=== PATIENT | female | born 1935 | race Caucasian/White ===

== ENCOUNTER 2016-08-23 12:29 | Day surgery (SDC) | payer OTHER ==
[~2016-08-23] VITALS: Ht 149.9 cm; Wt 81.7 kg
[~2016-08-23 12:29] MED LIST: ARICEPT5 MG PO; ATORVASTATIN CA80 MG PO; Antivert PO; CEFTIN500 MG PO; CELEXA10 MG PO; CELEXA20 MG PO; CITALOPRAM HBR20 MG PO; CLONAZEPAM0.5 MG PO; CLONIDINE HCL0.1 MG PO; COUMADIN2.5 MG PO; COUMADIN5 MG PO; CRANBERRY500 M3 PO; Coumadin,Jantoven PO; DAILY VALUE1 EACH PO; EFFEXOR XR75 MG PO; EFFEXOR75 MG PO; ESTROVEN 155 M155 MG PO; GABAPENTIN300 MG PO; GLUCOPHAGE1000 MG PO; HYDROCODON-ACE1 EAC5 PO; KLONOPIN0.5 M1 PO; KlonoPIN PO; LASIX20 MG PO; LEVAQUIN500 MG PO; LEVOTHYROXINE75 MCG PO; LISINOPRIL20 MG PO; LISINOPRIL40 MG PO; LOPRESSOR100 M1 PO; LOPRESSOR50 MG PO; Lasix PO; MACRODANTIN50 M1 PO; MELATONIN10 M1 PO; MELOXICAM15 MG PO; METFORMIN HCL1000 M1 PO; METFORMIN HCL1000 MG PO; NEURONTIN300 MG PO; NITROFURANTOIN50 MG PO; NITROGLYCERIN0.4 MG SL; NITROSTAT0.4 MG SL; Nitrostat,NitroQuick SL; OMEPRAZOLE20 M2 PO; OMEPRAZOLE40 M1 PO; OXYCODONE-APAP1 EACH PO; PERCOCET 10/1 TABLET PO; PERCOCET 5/31 TABLET PO; PRINIVIL20 MG PO; Prevacid PO; SPIRONOLACTONE PO; SPIRONOLACTONE25 MG PO; SYNTHROID75 MCG PO; TRAMADOL HCL50 MG PO; VALIUM2 MG PO; VITAMIN B12 100MCG PO; VITAMIN D2000 UNIT PO; WARFARIN SODIUM5 MG PO; ZESTRIL20 MG PO; ZITHROMAX500 MG PO; Zestril,Prinivil PO; [UNRECOGNIZED DRUG - OTHER] PO; [UNRECOGNIZED DRUG - REMARK]; [UNRECOGNIZED DRUG - REMARK]; [UNRECOGNIZED DRUG - REMARK]; [UNRECOGNIZED DRUG - REMARK]; [UNRECOGNIZED DRUG - REMARK]; [UNRECOGNIZED DRUG - REMARK]; [UNRECOGNIZED DRUG - REMARK]; [UNRECOGNIZED DRUG - REMARK] PO; [UNRECOGNIZED DRUG - REMARK] PO; [UNRECOGNIZED DRUG - REMARK] PO; [UNRECOGNIZED DRUG - REMARK] PO; [UNRECOGNIZED DRUG - REMARK] PO; [UNRECOGNIZED DRUG - REMARK] PO; celexa PO
[2016-08-23 13:27] LABS: POINT-OF-CARE METER ID UU14174212
[2016-08-23 13:44] LABS: INTER. NORMALIZED RATIO 1.1; PROTHROMBIN TIME 10.9 (9.2-11.2)
== END 2016-08-23 15:25 | disposition home or self-care (01) ==
LOC: PAIN 12:29 → SDC 13:00 → PAIN 13:00
PROVIDERS: Anesthesiology; Anesthesiology Pain Medicine
PROC: 015B3ZZ Destruction of Lumbar Nerve, Percutaneous Approach (ICD-10-PCS; principal; 2016-08-23)
DX: M47.816 Spondylosis without myelopathy or radiculopathy, lumbar region (principal); M54.5 Low back pain; F41.9 Anxiety disorder, unspecified; M51.36 Other intervertebral disc degeneration, lumbar region; M43.17 Spondylolisthesis, lumbosacral region; M48.06 Spinal stenosis, lumbar region; Z87.891 Personal history of nicotine dependence; Z96.659 Presence of unspecified artificial knee joint; Z98.1 Arthrodesis status; Z88.6 Allergy status to analgesic agent; Z88.5 Allergy status to narcotic agent; Z88.8 Allergy status to other drugs, medicaments and biological substances
CPT/HCPCS: 82948; 85610; J1030; J2250; J3010; S0020

== ENCOUNTER 2016-08-30 14:58 | Day surgery (SDC) | payer OTHER ==
[~2016-08-30] VITALS: Ht 149.9 cm; Wt 81.6 kg
[2016-08-30 15:47] LABS: POINT-OF-CARE METER ID UU14174212
== END 2016-08-30 17:43 | disposition home or self-care (01) ==
LOC: PAIN 14:58 → SDC 15:30 → PAIN 15:30
PROVIDERS: Anesthesiology Pain Medicine
PROC: 015B3ZZ Destruction of Lumbar Nerve, Percutaneous Approach (ICD-10-PCS; principal; 2016-08-30)
DX: M47.816 Spondylosis without myelopathy or radiculopathy, lumbar region (principal); M54.5 Low back pain; F41.9 Anxiety disorder, unspecified; M51.36 Other intervertebral disc degeneration, lumbar region; M43.17 Spondylolisthesis, lumbosacral region; M48.06 Spinal stenosis, lumbar region; R26.9 Unspecified abnormalities of gait and mobility; K21.0 Gastro-esophageal reflux disease with esophagitis; E11.9 Type 2 diabetes mellitus without complications; M19.90 Unspecified osteoarthritis, unspecified site; I48.91 Unspecified atrial fibrillation; I10 Essential (primary) hypertension; Z98.1 Arthrodesis status; Z95.0 Presence of cardiac pacemaker; Z86.79 Personal history of other diseases of the circulatory system; Z96.659 Presence of unspecified artificial knee joint; Z87.891 Personal history of nicotine dependence; Z79.01 Long term (current) use of anticoagulants; Z79.84 Long term (current) use of oral hypoglycemic drugs; Z88.6 Allergy status to analgesic agent; Z88.5 Allergy status to narcotic agent; Z88.8 Allergy status to other drugs, medicaments and biological substances
CPT/HCPCS: 82948; J1030; J3010; S0020

== ENCOUNTER 2017-03-07 09:28 | Day surgery (SDC) | payer OTHER ==
[~2017-03-07] VITALS: Ht 149.9 cm; Wt 83.9 kg
[~2017-03-07 09:28] MED LIST changes: +CATAPRES0.1 MG PO; -GABAPENTIN300 MG PO; -GLUCOPHAGE1000 MG PO; +KLONOPIN1 MG PO; +LIPITOR80 MG PO; -LOPRESSOR100 M1 PO; +METFORMIN HCL500 MG PO
[2017-03-07 10:36] LABS: POINT-OF-CARE METER ID UU13113694
[2017-03-07 11:28] LABS: INTER. NORMALIZED RATIO 1.2; PROTHROMBIN TIME 12.9 SEC (10.2-12.9)
== END 2017-03-07 12:12 | disposition home or self-care (01) ==
LOC: PAIN 09:28 → SDC 10:30 → PAIN 10:30
PROVIDERS: Anesthesiology Pain Medicine
DX: M47.26 Other spondylosis with radiculopathy, lumbar region (principal); M43.10 Spondylolisthesis, site unspecified; M48.06 Spinal stenosis, lumbar region; M51.16 Intervertebral disc disorders with radiculopathy, lumbar region; Z95.0 Presence of cardiac pacemaker; E11.9 Type 2 diabetes mellitus without complications; I10 Essential (primary) hypertension; E78.5 Hyperlipidemia, unspecified; E03.9 Hypothyroidism, unspecified; I35.0 Nonrheumatic aortic (valve) stenosis; K21.0 Gastro-esophageal reflux disease with esophagitis; I48.0 Paroxysmal atrial fibrillation; I49.5 Sick sinus syndrome; I27.2 Other secondary pulmonary hypertension; Z79.01 Long term (current) use of anticoagulants; Z87.891 Personal history of nicotine dependence
CPT/HCPCS: 82948; 85610; J1030; J3010

== ENCOUNTER 2017-12-26 14:06 | Day surgery (SDC) | payer OTHER ==
[~2017-12-26] VITALS: Ht 152.4 cm; Wt 81.7 kg
[~2017-12-26 14:06] MED LIST changes: +FUROSEMIDE20 MG PO; +ZYRTEC10 M3 PO
== END 2017-12-26 20:50 | disposition home or self-care (01) ==
LOC: CATH 14:06
PROVIDERS: Thoracic Surgery (Cardiothoracic Vascular Surgery)
PROC: 0JPT0PZ Removal of Cardiac Rhythm Related Device from Trunk Subcutaneous Tissue and Fascia, Open Approach (ICD-10-PCS; principal; 2017-12-26)
PROC: 0JH606Z Insertion of Pacemaker, Dual Chamber into Chest Subcutaneous Tissue and Fascia, Open Approach (ICD-10-PCS; principal; 2017-12-26)
DX: Z45.010 Encounter for checking and testing of cardiac pacemaker pulse generator [battery] (principal); I48.0 Paroxysmal atrial fibrillation; E78.5 Hyperlipidemia, unspecified; I10 Essential (primary) hypertension; K21.9 Gastro-esophageal reflux disease without esophagitis; E11.9 Type 2 diabetes mellitus without complications; I35.0 Nonrheumatic aortic (valve) stenosis; Z79.84 Long term (current) use of oral hypoglycemic drugs; Z79.01 Long term (current) use of anticoagulants
CPT/HCPCS: 71045; 82948; 93005; C1785; J0360; J0690; J0696; J1200; J2250; J3010; S0020